=== PATIENT | male | born 1980 | race Caucasian/White ===

== ENCOUNTER 2018-08-24 22:31 | Emergency (ER) | payer SELFPAY ==
[~2018-08-24] VITALS: Ht 177.8 cm; Wt 78.5 kg
[2018-08-24 23:00] VITALS: BP 116/69
[2018-08-24] MEDS ORDERED: TRUVADA 200 MG1 EAC1 ORAL (23:24)
[2018-08-24] MEDS ORDERED: ISENTRESS100 MG ORAL (23:24)
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
[2018-08-24] MEDS ORDERED: Isentress 400mg tab ORAL ONE (23:30)
[2018-08-24 23:40] VITALS: BP 120/72
== END 2018-08-24 23:40 | disposition home or self-care (01) ==
LOC: EMR 22:53
DX: Z20.6 Contact with and (suspected) exposure to human immunodeficiency virus [HIV] (principal)
CPT/HCPCS: 99283